=== PATIENT | male | born 1955 | race Caucasian/White ===

== ENCOUNTER 2023-05-31 14:07 | Emergency (ER) | payer MEDICARE, MEDICAID ==
[~2023-05-31] VITALS: Ht 185.4 cm; Wt 93.0 kg
[2023-05-31 14:19] LABS: BASOPHILS # (AUTO) 0.1 K/uL (0.0-0.2); BASOPHILS % (AUTO) 0.6 % (0.0-2.0); HEMATOCRIT 47 % (39-51); HEMOGLOBIN 16.1 g/dL (13.5-17.5); LYMPHOCYTES % (AUTO) 6.8 % (20.0-44.0); MEAN CORPUSCULAR HEMOGLOBIN 33 PG (26.0-33.0); MEAN CORPUSCULAR HGB CONC 34 g/dl (31.0-36.0); MEAN CORPUSCULAR VOLUME 98 fL (80-96); MONOCYTES # (AUTO) 0.5 K/uL (0.1-1.30); MONOCYTES % (AUTO) 3.5 % (2.0-12.0); NEUTROPHILS % (AUTO) 89.1 % (43.0-81.0); PLATELET COUNT (AUTO) 239 K/uL (150-450); RED BLOOD CELL COUNT(AUTO) 4.82 MIL/uL (4.5-6.0); RED CELL DISTRIBUTION WIDTH 13.6 % (11.5-15.0); WHITE BLOOD COUNT (AUTO) 14.6 K/uL (4.3-11.0)
[2023-05-31] MEDS ORDERED: CT SWABBABLE VALVE TRANS SET 1 EA INFUS.SET MC ONE (14:19)
[2023-05-31] MEDS ORDERED: IOHEXOL-350 100 ML VIAL IV ONE (14:19)
[2023-05-31] MEDS ORDERED: IV NS 0.9% 250 ML IV ONE (14:19)
[2023-05-31 14:40] LABS: CALCIUM, SERUM 8.9 mg/dL (8.5-10.1); CARBON DIOXIDE 23 mmol/L (21-32); CHLORIDE 104 mmol/L (98-107); GLUCOSE 327 mg/dL (74-106); INR 1.07 (0.91-1.10); PARTIAL THROMBOPLASTIN TIME 28.9 SEC (24.3-34.3); POTASSIUM 4.7 mmol/L (3.5-5.1); SODIUM SERUM 136 mmol/L (136-145); UREA NITROGEN, BLOOD 12 mg/dL (7-18)
[2023-05-31 14:55] LABS: ALANINE AMINOTRANSFERASE 17 U/L (12-78); ALBUMIN 3.1 g/dL (3.4-5.0); ALKALINE PHOSPHATASE 87 U/L (46-116); ASPARTATE AMINOTRANSFERASE 11 U/L (15-37); BILIRUBIN,DIRECT 0.1 mg/dL (0.0-0.2); BILIRUBIN,TOTAL 0.5 mg/dL (0.2-1.0); TOTAL PROTEIN, SERUM 7.3 g/dL (6.4-8.2)
[2023-05-31] MEDS ORDERED: NICARDIPINE HCL 50 MG in IV NS 0.9% 230 ML IV PRN (15:30)
[2023-05-31] MEDS: ATORVASTATIN 40 MG TABLET PO SCH (16:05)
[2023-05-31] MEDS ORDERED: ATORVASTATIN 40 MG TABLET ONE (16:19)
[2023-05-31] MEDS: CLOPIDOGREL BISULFATE 300 MG TABLET PO ONE (17:30)
[2023-05-31] MEDS ORDERED: CLOPIDOGREL BISULFATE 75 MG TABLET ONE (17:33)
[2023-05-31 17:56] VITALS: BP 165/95; TEMP 98; O2SAT 99
== END 2023-05-31 17:58 | disposition short-term general hospital (02) ==
LOC: ER 14:09
DX: I63.9 Cerebral infarction, unspecified (principal); I65.09 Occlusion and stenosis of unspecified vertebral artery; I65.29 Occlusion and stenosis of unspecified carotid artery; I10 Essential (primary) hypertension; E11.9 Type 2 diabetes mellitus without complications; Z60.2 Problems related to living alone
CPT/HCPCS: 99291; 70498; 93005 ×2; 70496; 85025; 80048; 80076; 36415; 84484; 85730; 82962; 70450; J7050; Q9967